=== PATIENT | male | born 1985 | race American Indian/Alaskan Native ===

== ENCOUNTER 2017-03-03 06:03 | Emergency (ER) | payer OTHER ==
[2017-03-03 09:16] VITALS: BP 108/65
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
== END 2017-03-03 10:18 | disposition home or self-care (01) ==
LOC: ED 06:03
DX: S39.012A Strain of muscle, fascia and tendon of lower back, initial encounter (principal); X58.XXXA Exposure to other specified factors, initial encounter; Y93.89 Activity, other specified; Y99.8 Other external cause status; Y92.89 Other specified places as the place of occurrence of the external cause
CPT/HCPCS: 99283